=== PATIENT | male | born 1950 | race Caucasian/White ===

== ENCOUNTER 2017-01-19 16:20 | Emergency (ER) | payer MEDICARE, MEDICAID ==
[~2017-01-19] VITALS: Ht 182.9 cm; Wt 58.0 kg
[~2017-01-19 16:20] MED LIST: ASPIRIN 81 LOW81 MG PO; CARVEDILOL3.125 MG PO; CHILD ASA81 MG PO; CILOSTAZOL100 MG OR; CIPROFLOXACN500 MG PO; COREG3.125 MG PO; DIGOXIN0.125 MG PO; FLEXERIL OR; FLOXIN OTIC0.3 % OT; LEVOTHYROXIN100 MC1 PO; LEVOTHYROXIN150 MCG PO; LOMOTIL2.5 MG PO; LORTAB 1010 MG PO; MORPHINE SUL15 MG OR; NAPROSYN500 MG PO; NEURONTIN300 MG OR; NITRO-DUR0.4 MG/HR TD; NORCO1 TA1 PO; PAXIL30 MG PO; PERCOCET 10/31 COMBO PO; PLAVIX75 MG OR; PLAVIX75 MG PO; PLETAL50 MG PO; PREVACID30 M2 PO; PROTONIX40 M2 PO; SIMVASTATIN40 MG OR; SIMVASTATIN40 MG PO; TIZANIDINE4 MG PO; TORADOL PO; TYLENOL # 31 TA1 PO; ULTRAM50 M1 PO; ULTRAM50 MG PO; XANAX0.25 MG OR; ZOFRAN ODT4 MG PO
[2017-01-19 17:09] LABS: HEMOGLOBIN 12.9 g/dl (14.0-18.0); IMMATURE GRANULOCYTES 0.3 % (0.0-1.0); MEAN CELL VOLUME 92.7 fL CALC (80.0-100.0); MEAN CORPUSCULAR HGB 31.5 pG CALC (26.0-32.0); MEAN CORPUSCULAR HGB CONC 33.9 g/L CALC (32.0-36.0); NEUT# 7.49 thou/uL (1.82-7.42); RED BLOOD COUNT 4.1 mill/uL (4.70-6.10); RED CELL DISTRI WIDTH 12.7 % (11.5-15.5)
[2017-01-19 17:16] LABS: ALBUMIN 4.2 g/dL (3.2-5.0); ALKALINE PHOSPHATASE 68 u/l (38-126); ANION GAP 16 (6-22 (CALC)); BILIRUBIN, TOTAL 0.6 mg/dL (0.0-1.4); BUN 16 mg/dL (8-23); BUN/CREATININE RATIO 20 (12-20 (CALC)); CALCIUM 8.5 mg/dL (8.4-10.2); CARBON DIOXIDE 23 mmol/l (22-30); CHLORIDE 104 mmol/l (95-108); CREATININE 0.8 mg/dL (0.7-1.3); GFR > 60 ML/MIN (>=60 (CALC)); GFR FOR AFR.AMER. > 60 ML/MIN (>=60 (CALC)); GLUCOSE 169 mg/dL (82-115); POTASSIUM 3.7 mmol/l (3.5-5.1); SGOT/AST 21 u/l (19-48); SGPT/ALT 30 u/l (11-66); SODIUM 138 mmol/l (137-146); TOTAL PROTEIN 6.9 g/dL (6.3-8.2)
[2017-01-19 17:28] LABS: MYOGLOBIN 24 ng/mL (0 - 121)
[2017-01-19] MEDS ORDERED: AMOXICILLIN500 MG PO (18:26)
[2017-01-19 18:36] VITALS: BP 167/81
== END 2017-01-19 18:41 | disposition home or self-care (01) ==
LOC: ED 16:20
PROVIDERS: Emergency Medicine
DX: R00.2 Palpitations (principal); T81.4XXA Infection following a procedure, initial encounter; L03.221 Cellulitis of neck; I25.10 Atherosclerotic heart disease of native coronary artery without angina pectoris; I10 Essential (primary) hypertension; I73.9 Peripheral vascular disease, unspecified; I25.2 Old myocardial infarction; E78.5 Hyperlipidemia, unspecified; E03.9 Hypothyroidism, unspecified; F17.210 Nicotine dependence, cigarettes, uncomplicated; Y83.8 Other surgical procedures as the cause of abnormal reaction of the patient, or of later complication, without mention of misadventure at the time of the procedure; J44.9 Chronic obstructive pulmonary disease, unspecified; Z95.1 Presence of aortocoronary bypass graft; Z95.5 Presence of coronary angioplasty implant and graft

== ENCOUNTER 2017-01-26 10:29 | Emergency (ER) | payer MEDICARE, MEDICAID ==
[~2017-01-26] VITALS: Ht 182.9 cm; Wt 16.0 kg
[~2017-01-26 10:29] MED LIST changes: +AMOXICILLIN500 MG PO
[2017-01-26] MEDS ORDERED: LEVOTHYROXIN50 MCG PO (10:44)
[2017-01-26 11:15] VITALS: BP 149/78
== END 2017-01-26 11:15 | disposition home or self-care (01) ==
LOC: ED 10:29
DX: M25.531 Pain in right wrist (principal); I25.10 Atherosclerotic heart disease of native coronary artery without angina pectoris; I10 Essential (primary) hypertension; I25.2 Old myocardial infarction; E78.5 Hyperlipidemia, unspecified; I73.9 Peripheral vascular disease, unspecified; E03.9 Hypothyroidism, unspecified; F17.290 Nicotine dependence, other tobacco product, uncomplicated; J44.9 Chronic obstructive pulmonary disease, unspecified; Z95.1 Presence of aortocoronary bypass graft; Z95.5 Presence of coronary angioplasty implant and graft; Z95.820 Peripheral vascular angioplasty status with implants and grafts

== ENCOUNTER 2017-03-10 08:01 | Emergency (ER) | payer MEDICARE, MEDICAID ==
[~2017-03-10] VITALS: Ht 182.9 cm; Wt 59.0 kg
[~2017-03-10 08:01] MED LIST changes: +LEVOTHYROXIN50 MCG PO
[2017-03-10 09:00] VITALS: BP 107/61
== END 2017-03-10 09:00 | disposition home or self-care (01) ==
LOC: ED 08:01
PROC: 2W3CX1Z Immobilization of Right Lower Arm using Splint (ICD-10-PCS; principal; 2017-03-10)
DX: S62.306A Unspecified fracture of fifth metacarpal bone, right hand, initial encounter for closed fracture (principal); I25.10 Atherosclerotic heart disease of native coronary artery without angina pectoris; I10 Essential (primary) hypertension; I25.2 Old myocardial infarction; I73.9 Peripheral vascular disease, unspecified; E78.5 Hyperlipidemia, unspecified; F17.210 Nicotine dependence, cigarettes, uncomplicated; E03.9 Hypothyroidism, unspecified; J44.9 Chronic obstructive pulmonary disease, unspecified; W22.8XXA Striking against or struck by other objects, initial encounter; Z95.1 Presence of aortocoronary bypass graft; Z95.5 Presence of coronary angioplasty implant and graft

== ENCOUNTER 2017-11-28 11:18 | Emergency (ER) | payer MEDICARE, MEDICAID ==
[~2017-11-28] VITALS: Ht 182.9 cm; Wt 61.0 kg
[2017-11-28] MEDS ORDERED: ACIPHEX20 MG PO (11:52)
[2017-11-28] MEDS ORDERED: SYNTHROID88 MCG PO (11:53)
[2017-11-28] MEDS ORDERED: ACULAR LS0.4 % OS (12:02)
[2017-11-28] MEDS ORDERED: ERYTHROMYCIN O3.5 GM OS (12:02)
[2017-11-28 12:15] VITALS: BP 129/84
== END 2017-11-28 12:15 | disposition home or self-care (01) ==
LOC: ED 11:18
DX: S05.02XA Injury of conjunctiva and corneal abrasion without foreign body, left eye, initial encounter (principal); F17.210 Nicotine dependence, cigarettes, uncomplicated; X58.XXXA Exposure to other specified factors, initial encounter; Y93.89 Activity, other specified; Z95.1 Presence of aortocoronary bypass graft

== ENCOUNTER 2018-01-04 16:07 | Emergency (ER) | payer MEDICARE, MEDICAID ==
[~2018-01-04] VITALS: Ht 182.9 cm; Wt 70.0 kg
[~2018-01-04 16:07] MED LIST changes: +ACIPHEX20 MG PO; +ACULAR LS0.4 % OS; +ERYTHROMYCIN O3.5 GM OS; +SYNTHROID88 MCG PO
[2018-01-04] MEDS ORDERED: SIMVASTATIN40 MG PO (16:45)
[2018-01-04] MEDS ORDERED: FENTANYL50 MCG/HR TD (16:45)
[2018-01-04] MEDS ORDERED: LEVOTHYROXIN150 MC1 PO (16:46)
[2018-01-04 17:15] VITALS: BP 122/84
== END 2018-01-04 17:15 | disposition home or self-care (01) ==
LOC: ED 16:07
DX: J02.9 Acute pharyngitis, unspecified (principal); G89.29 Other chronic pain; M54.2 Cervicalgia; F17.290 Nicotine dependence, other tobacco product, uncomplicated

== ENCOUNTER 2018-01-15 15:26 | Observation (INO) | payer MEDICARE, MEDICAID ==
[~2018-01-15] VITALS: Ht 182.9 cm; Wt 56.0 kg
[~2018-01-15 15:26] MED LIST changes: +FENTANYL50 MCG/HR TD; +LEVOTHYROXIN150 MC1 PO
[2018-01-15] MEDS ORDERED: HYDROCO/APAP1 TA9 PO (15:42)
[2018-01-15 16:05] LABS: HEMATOCRIT 38.7 % (39.0-50.0); HEMOGLOBIN 12.9 g/dl (14.0-18.0); IMMATURE GRANULOCYTES 0.2 % (0.0-1.0); MEAN CELL VOLUME 94.2 fL CALC (80.0-100.0); MEAN CORPUSCULAR HGB 31.4 pG CALC (26.0-32.0); MEAN CORPUSCULAR HGB CONC 33.3 g/L CALC (32.0-36.0); NEUT# 3.61 thou/uL (1.82-7.42); RED BLOOD COUNT 4.11 mill/uL (4.70-6.10); RED CELL DISTRI WIDTH 12.5 % (11.5-15.5)
[2018-01-15 16:22] LABS: ALBUMIN 4.1 g/dL (3.2-5.0); ALKALINE PHOSPHATASE 72 u/l (38-126); ANION GAP 11 (6-22 (CALC)); BILIRUBIN, TOTAL 0.4 mg/dL (0.0-1.4); BUN 13 mg/dL (8-23); BUN/CREATININE RATIO 17 (12-20 (CALC)); CARBON DIOXIDE 27 mmol/l (22-30); CHLORIDE 105 mmol/l (95-108); CREATININE 0.8 mg/dL (0.7-1.3); ETHYL ALCOHOL 0 mg/dl (0-30); GFR > 60 ML/MIN (>=60 (CALC)); GFR FOR AFR.AMER. > 60 ML/MIN (>=60 (CALC)); SGOT/AST 21 u/l (19-48); SGPT/ALT 31 u/l (11-66); SODIUM 139 mmol/l (137-146)
[2018-01-15 16:34] LABS: MYOGLOBIN 23 ng/mL (0 - 121)
[2018-01-15 18:20] VITALS: BP 121/73
[2018-01-16 01:00] VITALS: BP 130/61
[2018-01-16 04:36] VITALS: BP 107/66
[2018-01-16 06:40] LABS: HEMATOCRIT 36.6 % (39.0-50.0); HEMOGLOBIN 12.2 g/dl (14.0-18.0); IMMATURE GRANULOCYTES 0.2 % (0.0-1.0); MEAN CELL VOLUME 94.1 fL CALC (80.0-100.0); MEAN CORPUSCULAR HGB 31.4 pG CALC (26.0-32.0); MEAN CORPUSCULAR HGB CONC 33.3 g/L CALC (32.0-36.0); NEUT# 2.44 thou/uL (1.82-7.42); RED BLOOD COUNT 3.89 mill/uL (4.70-6.10); RED CELL DISTRI WIDTH 12.4 % (11.5-15.5)
[2018-01-16 06:50] LABS: ALKALINE PHOSPHATASE 61 u/l (38-126); ANION GAP 8 (6-22 (CALC)); BILIRUBIN, TOTAL 0.5 mg/dL (0.0-1.4); BUN 9 mg/dL (8-23); BUN/CREATININE RATIO 12 (12-20 (CALC)); CALCULATED LDLCHOLESTEROL 59 mg/dL (62-129 (CALC)); CARBON DIOXIDE 28 mmol/l (22-30); CHLORIDE 108 mmol/l (95-108); CHOLESTEROL HDL RATIO 3.9 (<4.4 (CALC)); CREATININE 0.7 mg/dL (0.7-1.3); GFR > 60 ML/MIN (>=60 (CALC)); GFR FOR AFR.AMER. > 60 ML/MIN (>=60 (CALC)); HDL CHOLESTEROL 27 mg/dL (>=40); POTASSIUM 3.9 mmol/l (3.5-5.1); SGOT/AST 15 u/l (19-48); SGPT/ALT 26 u/l (11-66); SODIUM 139 mmol/l (137-146); TOTAL PROTEIN 5.6 g/dL (6.3-8.2); TOTAL TRIGLYCERIDES 101 mg/dl (30-149); VLDL CHOLESTROL 20 mg/dl (4-45 (CALC))
[2018-01-16 06:55] LABS: ALBUMIN 3.1 g/dL (3.2-5.0); TOTAL CHOLESTEROL 106 mg/dl (0-199)
[2018-01-16 09:34] VITALS: BP 126/66
[2018-01-16 12:35] VITALS: BP 131/63
[2018-01-16 16:00] VITALS: BP 94/58
[2018-01-16 20:15] VITALS: BP 101/65
[2018-01-17 00:30] VITALS: BP 110/65
[2018-01-17 04:40] VITALS: BP 91/57
[2018-01-17 05:29] LABS: HEMATOCRIT 37.6 % (39.0-50.0); HEMOGLOBIN 12.4 g/dl (14.0-18.0); IMMATURE GRANULOCYTES 0.2 % (0.0-1.0); MEAN CELL VOLUME 95.2 fL CALC (80.0-100.0); MEAN CORPUSCULAR HGB 31.4 pG CALC (26.0-32.0); NEUT# 2.59 thou/uL (1.82-7.42); RED BLOOD COUNT 3.95 mill/uL (4.70-6.10); RED CELL DISTRI WIDTH 12.2 % (11.5-15.5)
[2018-01-17 05:43] LABS: ANION GAP 8 (6-22 (CALC)); BUN 9 mg/dL (8-23); BUN/CREATININE RATIO 12 (12-20 (CALC)); CARBON DIOXIDE 28 mmol/l (22-30); CHLORIDE 109 mmol/l (95-108); CREATININE 0.7 mg/dL (0.7-1.3); GFR > 60 ML/MIN (>=60 (CALC)); GFR FOR AFR.AMER. > 60 ML/MIN (>=60 (CALC)); POTASSIUM 4.2 mmol/l (3.5-5.1); SODIUM 141 mmol/l (137-146)
[2018-01-17 08:40] VITALS: BP 131/69
== END 2018-01-17 12:12 | disposition home or self-care (01) ==
LOC: ED 15:26 → ED-I 16:37 → ED 16:47 → MS2 16:48
PROVIDERS: Emergency Medicine; ADMIT Internal Medicine Geriatric Medicine; ATTEND Internal Medicine Geriatric Medicine
DX: G45.9 Transient cerebral ischemic attack, unspecified (principal); F41.1 Generalized anxiety disorder; I10 Essential (primary) hypertension; I25.10 Atherosclerotic heart disease of native coronary artery without angina pectoris; I65.22 Occlusion and stenosis of left carotid artery; H91.90 Unspecified hearing loss, unspecified ear; E03.9 Hypothyroidism, unspecified; I70.219 Atherosclerosis of native arteries of extremities with intermittent claudication, unspecified extremity; F17.210 Nicotine dependence, cigarettes, uncomplicated; F11.20 Opioid dependence, uncomplicated; R13.10 Dysphagia, unspecified; M96.1 Postlaminectomy syndrome, not elsewhere classified; Y83.9 Surgical procedure, unspecified as the cause of abnormal reaction of the patient, or of later complication, without mention of misadventure at the time of the procedure; Z95.5 Presence of coronary angioplasty implant and graft

== ENCOUNTER 2018-01-29 09:52 | Emergency (ER) | payer MEDICARE, MEDICAID ==
[~2018-01-29] VITALS: Ht 182.9 cm; Wt 65.0 kg
[~2018-01-29 09:52] MED LIST changes: +HYDROCO/APAP1 TA9 PO
[2018-01-29] MEDS ORDERED: HYDROCO/APAP1 T13 PO (10:07)
[2018-01-29] MEDS ORDERED: LEVOTHROID125 MCG PO (10:07)
[2018-01-29] MEDS ORDERED: LEVOTHYROXIN125 MC1 PO (10:17)
[2018-01-29 10:35] VITALS: BP 155/83
== END 2018-01-29 10:35 | disposition home or self-care (01) ==
LOC: ED 09:52
DX: F41.9 Anxiety disorder, unspecified (principal); G58.8 Other specified mononeuropathies; F17.210 Nicotine dependence, cigarettes, uncomplicated; Z95.1 Presence of aortocoronary bypass graft; Z95.5 Presence of coronary angioplasty implant and graft

== ENCOUNTER 2018-02-09 18:37 | Emergency (ER) | payer MEDICARE, MEDICAID ==
[~2018-02-09] VITALS: Ht 182.9 cm; Wt 59.0 kg
[~2018-02-09 18:37] MED LIST changes: +HYDROCO/APAP1 T13 PO; +LEVOTHROID125 MCG PO; +LEVOTHYROXIN125 MC1 PO
[2018-02-09 18:58] VITALS: BP 142/79
== END 2018-02-09 19:14 | disposition left against medical advice (07) ==
LOC: ED 18:37 → AMA 19:13
DX: R42 Dizziness and giddiness (principal); Z91.19 Patient's noncompliance with other medical treatment and regimen

== ENCOUNTER → 2018-04-28 | Outpatient (REF) | payer MEDICARE, MEDICAID | END | disposition home or self-care (01) | LOC: LAB 09:41 | PROVIDERS: ATTEND Internal Medicine Geriatric Medicine | DX: E03.9 Hypothyroidism, unspecified (principal) ==

== ENCOUNTER → 2018-10-01 | Outpatient (REF) | payer MEDICARE, MEDICAID ==
[2018-10-01 10:46] LABS: ALBUMIN 4.9 g/dL (3.2-5.0); ALKALINE PHOSPHATASE 62 u/l (38-126); ANION GAP 14 (6-22 (CALC)); BILIRUBIN, TOTAL 0.7 mg/dL (0.0-1.4); BUN 9 mg/dL (8-23); BUN/CREATININE RATIO 11 (12-20 (CALC)); CARBON DIOXIDE 26 mmol/l (22-30); CHLORIDE 105 mmol/l (95-108); CHOLESTEROL HDL RATIO 3.4 (<4.4 (CALC)); CREATININE 0.8 mg/dL (0.7-1.3); GFR > 60 ML/MIN (>=60 (CALC)); GFR FOR AFR.AMER. > 60 ML/MIN (>=60 (CALC)); HDL CHOLESTEROL 62 mg/dL (>=40); POTASSIUM 4.7 mmol/l (3.5-5.1); SGOT/AST 25 u/l (19-48); SODIUM 140 mmol/l (137-146); TOTAL PROTEIN 7.9 g/dL (6.3-8.2); TOTAL TRIGLYCERIDES 84 mg/dl (30-149); VLDL CHOLESTROL 17 mg/dl (4-45 (CALC))
[2018-10-01 10:47] LABS: IMMATURE GRANULOCYTES 0.3 % (0.0-5.0); MEAN CELL VOLUME 97.3 fL CALC (80.0-100.0); MEAN CORPUSCULAR HGB 31.3 pG CALC (26.0-32.0); MEAN CORPUSCULAR HGB CONC 32.2 g/L CALC (32.0-36.0); NEUT# 5.42 thou/uL (1.82-7.42); RED BLOOD COUNT 4.82 mill/uL (4.70-6.10); RED CELL DISTRI WIDTH 13.2 % (11.5-15.5)
[2018-10-01 10:48] LABS: CALCULATED LDLCHOLESTEROL 133 mg/dL (62-129 (CALC)); TOTAL CHOLESTEROL 212 mg/dl (0-199)
[2018-10-01 10:54] LABS: HEMATOCRIT 46.9 % (39.0-50.0); HEMOGLOBIN 15.1 g/dl (14.0-18.0)
[2018-10-01 11:16] LABS: TSH, 3RD GENERATION 7.72 uIU/mL (0.47 - 4.68)
== END | disposition home or self-care (01) ==
LOC: LAB 09:41
PROVIDERS: ATTEND Internal Medicine Geriatric Medicine
DX: E78.5 Hyperlipidemia, unspecified (principal); E03.9 Hypothyroidism, unspecified

== ENCOUNTER 2019-02-07 16:38 | Observation (INO) | payer MEDICARE, MEDICAID ==
[~2019-02-07] VITALS: Ht 182.9 cm; Wt 59.0 kg
--- NOTE | 2019-02-07 16:40 | NUR ---
PT TO ROOM VIA WHEELCHAIR.
[2019-02-07 18:07] LABS: HEMATOCRIT 38.4 % (39.0-50.0); HEMOGLOBIN 12.8 g/dl (14.0-18.0); IMMATURE GRANULOCYTES 0.2 % (0.0-5.0); MEAN CELL VOLUME 93.7 fL CALC (80.0-100.0); MEAN CORPUSCULAR HGB 31.2 pG CALC (26.0-32.0); MEAN CORPUSCULAR HGB CONC 33.3 g/L CALC (32.0-36.0); NEUT# 5.03 thou/uL (1.82-7.42); RED BLOOD COUNT 4.1 mill/uL (4.70-6.10); RED CELL DISTRI WIDTH 12.8 % (11.5-15.5)
[2019-02-07 18:14] LABS: ALBUMIN 4.3 g/dL (3.2-5.0); ALKALINE PHOSPHATASE 66 u/l (38-126); ANION GAP 12 (6-22 (CALC)); BILIRUBIN, TOTAL 0.5 mg/dL (0.0-1.4); BUN 10 mg/dL (8-23); BUN/CREATININE RATIO 12 (12-20 (CALC)); CARBON DIOXIDE 29 mmol/l (22-30); CHLORIDE 103 mmol/l (95-108); CREATININE 0.9 mg/dL (0.7-1.3); GFR > 60 ML/MIN (>=60 (CALC)); GFR FOR AFR.AMER. > 60 ML/MIN (>=60 (CALC)); POTASSIUM 3.9 mmol/l (3.5-5.1); SODIUM 141 mmol/l (137-146); TOTAL PROTEIN 6.9 g/dL (6.3-8.2)
[2019-02-07 18:19] LABS: SGOT/AST 37 u/l (19-48)
[2019-02-07 18:22] LABS: MYOGLOBIN 23 ng/mL (0 - 121)
[2019-02-07] MEDS ORDERED: OMEPRAZOLE20 MG PO (19:02)
[2019-02-07] MEDS ORDERED: GABAPENTIN100 MG PO (19:03)
[2019-02-07] MEDS ORDERED: LASIX 20 MG TAB20 MG PO (19:04)
[2019-02-07] MEDS ORDERED: KLOR-CON 1010 MEQ PO (19:05)
--- NOTE | 2019-02-07 19:13 | NUR ---
EDP SPEAKS WITH PT REGARDING ADMISSION, AGREEABLE. NO COMPLAINTS, NO DISTRESS.
--- NOTE | 2019-02-07 21:20 | NUR ---
PT ARRIVED TO UNIT VIA STRECHER WITH ER STAFF; ALERT AND ORIENTED. AMBUALATED TO BED INDEPENDENTLY WITH STEADY GAIT. DENIES CHEST PAIN UPON ARRIVAL. RESPIRATIONS EVEN AND UNLABORED ON ROOM AIR. PLAN OF CARE DISCUSSED. PT ENCOURAGED TO VERBALIZE CONCERNS. SAFETY MEASURES IN PLACE. CALL LIGHT WITHIN REACH.
[2019-02-07 21:23] LABS: URINE BILIRUBIN - DIPSTICK NEGATIVE (NEGATIVE); URINE BLOOD DIPSTICK TRACE-LYSED (NEGATIVE); URINE COLOR YELLOW; URINE GLUCOSE - DIPSTICK NEGATIVE (NEGATIVE); URINE KETONE NEGATIVE (NEGATIVE); URINE LEUK ESTERASE NEGATIVE (NEGATIVE); URINE NITRITE - DIPSTICK NEGATIVE (Negative); URINE PH 6.5 (4.5-8.0); URINE PROTEIN - DIPSTICK NEGATIVE (NEG-TRACE); URINE SPECIFIC GRAVITY <=1.005; URINE UROBILINOGEN - DIPSTICK 0.2 E.U./dL (0.2)
[2019-02-07 21:30] VITALS: BP 116/61
--- NOTE | 2019-02-07 21:30 | NUR ---
PT SEEN WITH LOW BLOOD PRESSURE AFTER NTP APPLIED, EDP MADE AWARE, NS BOLUS GIVEN. PT SWITCHED FROM M/S TO ICU, REPORT WAS PROVIDED TO HALLIE. BP UPON DEPARTURE WENT FROM 81/56 TO 111/62. PT DENIED ANY WEAKNESS OR LIGHTHEADEDNESS WHEN BP WAS LOW.
[2019-02-07 21:45] VITALS: BP 119/64
--- NOTE | 2019-02-07 21:45 | NUR ---
ASSESSMENT COMPLETE AND WNL; FENTAYL PATCH NOTED TO POSTERIOR RFA 50MCG/HR; PT REPORTS THAT HE APPLIED IT YESTERDAY AND IT LASTS 72 HOURS; PATCH LABELED FOR THAT DATE.
[2019-02-07 22:00] VITALS: BP 113/60
--- NOTE | 2019-02-07 22:05 | NUR ---
RT AT BEDSIDE FOR EKG.
[2019-02-07 22:15] VITALS: BP 112/58
[2019-02-07 23:15] VITALS: BP 108/48
[2019-02-07 23:45] VITALS: BP 92/59
[2019-02-08] VITALS (12 sets, daily range): BP systolic 76–114; BP diastolic 43–75
--- NOTE | 2019-02-08 00:21 | NUR ---
PT ASLEEP AT THIS TIME WITH NO SIGNS OF DISTRESS. RESPIRATIONS EVEN AND UNLABORED ON ROOM AIR. SINUS SUE WITH IVCD ON TELEMETRY HR CURRENTLY 59. IV FLUIDS INFUSING WIHTOUT DIFFICULTY; IV SITE APPEARS HEALTHY.
--- NOTE | 2019-02-08 04:52 | NUR ---
LAB AT BEDSIDE.
[2019-02-08 05:21] LABS: HEMATOCRIT 36.3 % (39.0-50.0); HEMOGLOBIN 11.9 g/dl (14.0-18.0); IMMATURE GRANULOCYTES 0.2 % (0.0-5.0); MEAN CELL VOLUME 95.5 fL CALC (80.0-100.0); MEAN CORPUSCULAR HGB 31.3 pG CALC (26.0-32.0); MEAN CORPUSCULAR HGB CONC 32.8 g/L CALC (32.0-36.0); NEUT# 3.58 thou/uL (1.82-7.42); RED BLOOD COUNT 3.8 mill/uL (4.70-6.10); RED CELL DISTRI WIDTH 12.8 % (11.5-15.5)
--- NOTE | 2019-02-08 05:42 | NUR ---
RT AT BEDSIDE FOR EKG.
--- NOTE | 2019-02-08 05:42 | NUR ---
PT REMAINED HYPOTENSIVE THROUGHOUT THE NIGHT AND BRADYCARDIC HEART RATE LOW 45. DENIES DIZZINESS AND LIGHTHEADEDNESS. REMAINS ON FAL PRECUATIONS.
[2019-02-08 05:53] LABS: ALKALINE PHOSPHATASE 54 u/l (38-126); BILIRUBIN, TOTAL 0.6 mg/dL (0.0-1.4); BUN 9 mg/dL (8-23); BUN/CREATININE RATIO 10 (12-20 (CALC)); CALCULATED LDLCHOLESTEROL 62 mg/dL (62-129 (CALC)); CARBON DIOXIDE 29 mmol/l (22-30); CHLORIDE 109 mmol/l (95-108); CHOLESTEROL HDL RATIO 2.9 (<4.4 (CALC)); CREATININE 0.9 mg/dL (0.7-1.3); GFR > 60 ML/MIN (>=60 (CALC)); GFR FOR AFR.AMER. > 60 ML/MIN (>=60 (CALC)); HDL CHOLESTEROL 39 mg/dL (>=40); SGOT/AST 18 u/l (19-48); SODIUM 140 mmol/l (137-146); TOTAL TRIGLYCERIDES 56 mg/dl (30-149); VLDL CHOLESTROL 11 mg/dl (0-38 (CALC))
[2019-02-08 06:10] LABS: ALBUMIN 3.1 g/dL (3.2-5.0); ANION GAP 7 (6-22 (CALC)); POTASSIUM 4.7 mmol/l (3.5-5.1); TOTAL CHOLESTEROL 112 mg/dl (0-199); TOTAL PROTEIN 5.2 g/dL (6.3-8.2)
[2019-02-08 06:19] LABS: TSH, 3RD GENERATION 1.41 uIU/mL (0.47 - 4.68)
--- NOTE | 2019-02-08 06:28 | NUR ---
ORTHOSTATIC VS OBTAINED AND NEGATIVE. PT DOES REPORT MILD DIZZINESS AND WEAKNESS DURING POSITION CHANGES.
--- NOTE | 2019-02-08 07:00 | NUR ---
PT RESTING IN BED WITH EYES CLOSED. PT AROUSES TO VERBAL STIMULI. PT IS ALERT AND ORIENTED X3. SHIFT ASSESSMENT COMPLETED AT THIS TIME. IV PATENT X1. CALL LIGHT IN REACH. WILL CONTINUE TO MONITOR.
--- NOTE | 2019-02-08 07:27 | NUR ---
PT SET UP FOR AM MEAL.
--- NOTE | 2019-02-08 08:15 | NUR ---
DR MORALES AT BEDSIDE AT THIS TIME.
--- NOTE | 2019-02-08 08:16 | NUR ---
LAB AT BEDSIDE AT THIS TIME TO DRAW TROPONIN
--- NOTE | 2019-02-08 09:25 | NUR ---
DISCHARGE INSTRUCTIONS REVIEWED WITH PATIENT. PATIENT VERBALIZED UNDERSTANDING.
--- NOTE | 2019-02-08 09:27 | NUR ---
IV site discontinued, cath intact. No edema , no redness, voices no discomfort.
--- NOTE | 2019-02-08 09:40 | NUR ---
Discharge instructions given. Patient verbalizes understanding of same. Discharged in stable condition via Wheelchair to Home with family. All belongings sent with pt.
== END 2019-02-08 09:40 | disposition home or self-care (01) ==
LOC: ED 16:38 → ED-I 18:36 → ED 19:00 → MS2 19:01 → ICU 19:01 → MS2 19:01 → ICU 20:54
PROVIDERS: Emergency Medicine; ADMIT Internal Medicine Geriatric Medicine; ATTEND Internal Medicine Geriatric Medicine
DX: I24.9 Acute ischemic heart disease, unspecified (principal); I10 Essential (primary) hypertension; I25.10 Atherosclerotic heart disease of native coronary artery without angina pectoris; G89.29 Other chronic pain; M54.5 Low back pain; F19.20 Other psychoactive substance dependence, uncomplicated; F41.1 Generalized anxiety disorder; K27.9 Peptic ulcer, site unspecified, unspecified as acute or chronic, without hemorrhage or perforation; K21.9 Gastro-esophageal reflux disease without esophagitis; G62.9 Polyneuropathy, unspecified; R13.10 Dysphagia, unspecified; E78.5 Hyperlipidemia, unspecified; E03.9 Hypothyroidism, unspecified; I65.29 Occlusion and stenosis of unspecified carotid artery; J44.9 Chronic obstructive pulmonary disease, unspecified; F32.9 Major depressive disorder, single episode, unspecified; I70.219 Atherosclerosis of native arteries of extremities with intermittent claudication, unspecified extremity; M96.1 Postlaminectomy syndrome, not elsewhere classified; F17.210 Nicotine dependence, cigarettes, uncomplicated; Y83.8 Other surgical procedures as the cause of abnormal reaction of the patient, or of later complication, without mention of misadventure at the time of the procedure; Z95.5 Presence of coronary angioplasty implant and graft; Z95.1 Presence of aortocoronary bypass graft

== ENCOUNTER 2021-11-23 11:00 | Emergency (ER) | payer MEDICARE, MEDICAID ==
[~2021-11-23] VITALS: Ht 182.9 cm; Wt 63.6 kg
[~2021-11-23 11:00] MED LIST changes: +AUGMENTIN500TAB PO; +GABAPENTIN100 MG PO; +KLOR-CON 1010 MEQ PO; +LASIX 20 MG TAB20 MG PO; +OMEPRAZOLE20 MG PO
[2021-11-23 11:06] VITALS: BP 144/71
[2021-11-23 11:07] VITALS: BP 144/71
[2021-11-23] MEDS ORDERED: OMNICEF300 M1 PO (11:25)
== END 2021-11-23 11:45 | disposition home or self-care (01) ==
LOC: ED 11:00
PROC: 0HQEXZZ Repair Left Lower Arm Skin, External Approach (ICD-10-PCS; principal; 2021-11-23)
DX: S61.512A Laceration without foreign body of left wrist, initial encounter (principal); I10 Essential (primary) hypertension; E78.00 Pure hypercholesterolemia, unspecified; J44.9 Chronic obstructive pulmonary disease, unspecified; I25.10 Atherosclerotic heart disease of native coronary artery without angina pectoris; K21.9 Gastro-esophageal reflux disease without esophagitis; G62.9 Polyneuropathy, unspecified; F17.210 Nicotine dependence, cigarettes, uncomplicated; W27.8XXA Contact with other nonpowered hand tool, initial encounter; Y92.009 Unspecified place in unspecified non-institutional (private) residence as the place of occurrence of the external cause; Z95.1 Presence of aortocoronary bypass graft; Z87.11 Personal history of peptic ulcer disease